=== PATIENT | male | born 1955 | race Caucasian/White ===

== ENCOUNTER 2021-07-01 08:35 | Day surgery (SDC) | payer OTHER ==
[~2021-07-01] VITALS: Ht 175.3 cm; Wt 99.8 kg
[~2021-07-01 08:35] MED LIST: KAPSPARGO SPRIN25 MG PO; PROPECIA1 MG PO
--- NOTE | 2021-07-01 10:16 | NUR ---
07/01/21 INOCENTE STOLL 1007-PATIENT ARRIVES TO PACU ON 4L VIA NC. PATIENT IS DROWSY. DENIES PAIN AND NAUSEA. RESP EVEN AND UNLABORED. PATIENT IS PASSING GAS.
--- NOTE | 2021-07-02 08:08 | OR ---
[facility] [address], [place] [address] Signed DATE OF OPERATION: 07/01/2021 SURGEON: Froylan Bal MD PREOPERATIVE DIAGNOSES: 1. Father with colon cancer, age 66. 2. Older brother with colon polyps. 3. Personal history of colonic polyps in 2006. 4. Right-sided diverticulosis. POSTOPERATIVE DIAGNOSES: 1. 7 mm sessile polyp at proximal right colon (snare). 2. 3 mm polyp at 50 cm. 3. Minimal right and left-sided diverticulosis. PROCEDURE: Colonoscopy with snare polypectomy and hot biopsy. ESTIMATED BLOOD LOSS: None. INDICATIONS: Eduardo is a 65-year-old gentleman, who comes every few years for repeat colonoscopy. We know that his father had colon cancer at age 66. His older brother had colonic polyps removed. I helped Eduardo in 2006. He had serrated adenomatous polyps as well as right-sided diverticulosis at that time. We repeated the colonoscopy in 2010 and this was unremarkable. He then came back for repeat colonoscopy in 2015 and again some right-sided diverticulosis with small hyperplastic polyps. Always he does well with Versed and fentanyl. He has no lower GI complaints. He always comes with his . In the office, I had given him a pamphlet on colonoscopy. He had his understand this quite well. They have now used our bowel prep several times and are quite familiar with those instructions. He recalls the need for the IV conscious sedation. There is risk including, but not limited to gas bloating, crampy abdominal pain, bleeding, perforation requiring surgery, and missed diagnosis. He had expressed understanding and wished to proceed. PROCEDURE NOTE: Eduardo was taken into our endoscopy suite and placed in the left lateral decubitus position. He was given 4 mg of Versed and 100 mcg of fentanyl to cover the case. A digital rectal exam was performed and this was unremarkable. He has some mild Electronically Signed By: FROYLAN BAL MD 07/02/21 0808 PATIENT NAME: EDUARDO PASCUAL OPERATIVE REPORT DATE OF : 57 REPORT #: [id number] PHYSICIAN: FROYLAN BAL MD PCP: HYACINTH WATERMAN MD REPORT IS CONFIDENTIAL AND NOT TO BE RELEASED WITHOUT AUTHORIZATION [facility] [address], [place] [address] Signed induration to his prostate gland. The adult colonoscope was introduced and advanced all around into the cecum under direct visualization of camera without difficulty. His prep was quite excellent. We could easily see the appendiceal orifice and the ileocecal valve. The scope was then slowly withdrawn. He had a small 7 mm sessile polyp in the proximal right colon. We removed that with the help of the snare and hot biopsy forceps. Just opposite to that polypectomy site was a very tiny 2-3 mm hyperplastic appearing polyp. It was easily destroyed with hot biopsy forceps. The scope was withdrawn and we found a very small 3 mm sessile polyp at 50 cm. It was easy destroyed and removed completely with the hot biopsy forceps. Again, we could see a few diverticula in the right colon as well as the left colon on this occasion. There were a few in number, generally small in size and scattered about. The rectum was unremarkable. Upon retroflexion of the scope, there was no additional pathology noted above the anal canal. After this, the gas was suctioned out and the colonoscope removed. Eduardo tolerated the procedure quite well. RECOMMENDATIONS: I will see Eduardo back in my office in 7 to 14 days to review his results. It looks like he was down to 3-5 year plan. Froylan Bal MD ALB/MODL /[id number] cc: MD Froylan Flores MD Copies: HYACINTH WATERMAN MD, ANDREW L MD ~ Electronically Signed By: FROYLAN BAL MD 07/02/21 0808 PATIENT NAME: EDUARDO PASCUAL OPERATIVE REPORT DATE OF : 57 REPORT #: [id number] PHYSICIAN: FROYLAN BAL MD PCP: HYACINTH WATERMAN MD REPORT IS CONFIDENTIAL AND NOT TO BE RELEASED WITHOUT AUTHORIZATION
--- NOTE | 2021-07-02 14:26 | PATH ---
[facility] [address], [place] [address] Signed SPECIMEN(S): A RIGHT COLON POLYP SPECIMEN(S): B POLYP AT 50 CM SPECIMEN SOURCE: A. RIGHT COLON POLYP B. POLYP AT 50 CM CLINICAL HISTORY: Colonoscopy. Diverticulitis, hyperplastic polyps, family history of colon CA. FINAL PATHOLOGIC DIAGNOSIS: A. Colon, right, polyp, polypectomy: - Fragments of cauterized colonic mucosa with no histopathologic abnormality. - Negative for dysplasia or malignancy. B. Colon, polyp at 50 cm, polypectomy: - Fragments of cauterized colonic mucosa with no histopathologic abnormality. - Negative for dysplasia or malignancy. COMMENT: Multiple additional levels of specimens A and B were examined. NAL:cml:C2NR MICROSCOPIC EXAMINATION: Histologic sections of all submitted blocks are examined by light microscopy. These findings, together with the gross examination, support the pathologic diagnosis. GROSS DESCRIPTION: Two specimens are received in two containers, labeled "HR." A. The specimen, labeled "HR, #1 right colon polyp," is received in formalin and consists of one you soft tissue fragment that measures 0.3 cm in greatest dimension. The specimen is entirely submitted in cassette (A1). B. The specimen, labeled "HR, #2 polyp at 50 cm," is received in formalin and consists of one you soft tissue fragment that measures 0.3 cm in greatest dimension. The specimen is entirely submitted in cassette (B1). AT (under the direct supervision of a pathologist) The Gross Description was prepared using a voice recognition system. The report was reviewed for accuracy; however, sound-alike word errors, addition and/or deletions may occur. If there is any PATIENT NAME: MAHESH PASCUAL PATHOLOGY DATE OF : 57 REPORT #: [id number] PHYSICIAN: CHRIS AVALOS PCP: HYACINTH WATERMAN MD REPORT IS CONFIDENTIAL AND NOT TO BE RELEASED WITHOUT AUTHORIZATION [facility] [address], [place] [address] Signed question about this report, please contact Client Services. PERFORMING LABORATORY: The technical component was performed by [facility], [address] [place] [address] (Physical Therapy Supervisor: Barb Howard MD; CLIA# [id number]). [facility] [address] [place] [id number] (CLIA# [id number]). Diagnostician: Jacqueline Khoury MD Pathologist Electronically Signed 07/02/2021 Copies: ~ PATIENT NAME: MAHESH PASCUAL PATHOLOGY DATE OF : 57 REPORT #: [id number] PHYSICIAN: CHRIS AVALOS PCP: HYACINTH WATERMAN MD REPORT IS CONFIDENTIAL AND NOT TO BE RELEASED WITHOUT AUTHORIZATION
== END 2021-07-01 10:50 | disposition home or self-care (01) ==
LOC: OPS 08:35
PROVIDERS: ATTEND Colon & Rectal Surgery
PROC: 0DBK8ZX Excision of Ascending Colon, Via Natural or Artificial Opening Endoscopic, Diagnostic (ICD-10-PCS; 2021-07-01)
PROC: 0DBK8ZX Excision of Ascending Colon, Via Natural or Artificial Opening Endoscopic, Diagnostic (ICD-10-PCS; principal; 2021-07-01 09:30)
DX: K63.5 Polyp of colon (principal); K57.30 Diverticulosis of large intestine without perforation or abscess without bleeding
CPT/HCPCS: 99153; G0500; J2250; J3010; J7121